=== PATIENT | female | born 1955 | race Caucasian/White ===

== ENCOUNTER → 2022-02-19 | Day surgery (SDC) | payer OTHER ==
[~2022-02-19] MED LIST: Lidocaine 2% PF 5 ML VIAL ONE; Sodium Bicarbonate 2.5 MEQ/5 ML VIAL ONE
[2022-02-19 13:39] VITALS: BMI 16.1
[2022-02-19 13:41] VITALS: BP 113/75; TEMP 98.1
== END | disposition home or self-care (01) ==
LOC: ULT 11:56
PROVIDERS: ATTEND Specialist
PROC: 0G9H3ZX Drainage of Right Thyroid Gland Lobe, Percutaneous Approach, Diagnostic (ICD-10-PCS; principal; 2022-02-19)
DX: E04.1 Nontoxic single thyroid nodule (principal); Z87.891 Personal history of nicotine dependence; Z79.83 Long term (current) use of bisphosphonates; Z79.899 Other long term (current) drug therapy
CPT/HCPCS: 10005; 88173; J2001

== ENCOUNTER 2022-12-15 13:39 | Outpatient (CLI) | payer MEDICARE, OTHER | END 2022-12-15 13:40 | disposition home or self-care (01) | LOC: CT 13:39 | PROVIDERS: ATTEND Family Medicine | DX: R91.1 Solitary pulmonary nodule (principal); J98.4 Other disorders of lung; Z87.891 Personal history of nicotine dependence | CPT/HCPCS: 71271 ==

== ENCOUNTER 2023-07-03 10:44 | Outpatient (CLI) | payer MEDICARE, OTHER | END 2023-07-03 10:45 | disposition home or self-care (01) | LOC: CT 10:44 | PROVIDERS: ATTEND Family Medicine | DX: R91.1 Solitary pulmonary nodule (principal) | CPT/HCPCS: 71270 ==

== ENCOUNTER 2023-10-15 12:00 | Outpatient (CLI) | payer MEDICARE, OTHER | END 2023-10-15 12:01 | disposition home or self-care (01) | LOC: BICULT 12:00 | PROVIDERS: ATTEND Specialist | DX: E04.1 Nontoxic single thyroid nodule (principal) | CPT/HCPCS: 76536 ==

== ENCOUNTER 2024-06-01 08:53 | Outpatient (CLI) | payer MEDICARE, OTHER | END 2024-06-01 08:54 | disposition home or self-care (01) | LOC: BICMAMMO 08:53 | PROVIDERS: ATTEND Family Medicine | DX: Z12.31 Encounter for screening mammogram for malignant neoplasm of breast (principal); M81.0 Age-related osteoporosis without current pathological fracture | CPT/HCPCS: 77063; 77067; 77080 ==